=== PATIENT | female | born 1975 | race Caucasian/White ===

== ENCOUNTER → 2018-01-12 08:20 | Day surgery (SDC) | payer OTHER, SELFPAY ==
[2018-01-07 12:21] VITALS: BMI 35.3
[2018-01-12] VITALS (17 sets, daily range): BP systolic 103–147; BP diastolic 57–92; PULSE 78–97; RESP 14–20; TEMP 36.3–37; O2SAT 94–99; BMI 35.3
--- NOTE | 2018-01-12 | PATH_ITS ---
[facility] Accession Number: [id number] . 01 Material submitted: . ENDOMETRIOMA WALL . 02 Diagnosis: Endometrioma Wall, Biopsy: Histologic changes consistent with portions of endometrioma. Negative for atypia and malignancy. [facility]/01/15/2018 . 02 Electronically signed: . Yaima Medina MD, Pathologist NPI- [id number] . 01 Gross description: . Received in formalin, labeled 1-endometrial wall, is a piece simmons-white rubbery tissue (2.0 x 1.6 x 0.3 cm). The apparent resection margin is inked black. Serially sectioned and entirely submitted in cassette A1. ([id number] ) /FRR . 02 Pathologist provided ICD-10: N80.9 . 02 CPT . 811972 Performed at: 01 [facility] [address] [id number] MD Tone Shin MD Phone: [phone] Performed at: 02 [facility] [address] [place], [place] [id number] MD Hany Amaral MD Phone: [phone]
[2018-01-12] MEDS: LACTATED RINGERS 1,000 ML 42 ML IV ×2 (09:05→12:23)
--- NOTE | 2018-01-12 10:12 | PM.PREOP ---
Pre-operative Note Interval Note Pre-op Check: History & Physical exam performed today
--- NOTE | 2018-01-12 10:12 | PM.GYNHP.1 ---
History of Present Illness Narrative: Rocio Crawford is a 42 year old female 0 who presents for diagnostic laparoscopy with possible excision of a right/left adnexal cyst and lysis of adhesions Patient been has been having bilateral pelvic pain. She has a cyst on ultrasound. [facility] Medical History Anxiety (Acute) Depression (Acute) Dislocation of left shoulder joint (Acute) GERD (gastroesophageal reflux disease) (Acute) History of hysterectomy (Acute) History of uterine fibroid (Acute) Hydronephrosis of right kidney (Acute) Migraines (Acute) Pneumonia (Acute) Sinus infection (Acute) Surgical History Hx of cholecystectomy (Acute) Hx of laparoscopy (Acute) Status post hysterectomy Status post laparoscopy (12/01/15) Social History marital status: Single household members: family and none Smoking Status: Never smoker alcohol intake: current alcohol intake frequency: holidays/special occasions only Meds Home Medications Medication Instructions Recorded Confirmed Type ibuprofen [Advil Liqui-Gel] 400 mg PO PRN PRN #0 03/01/17 01/12/18 History hydrocodone-acetaminophen [Vicodin] 1 tab PO Q4-6H PRN 01/12/18 01/12/18 History Generic Name Dose Route Start Last Admin Trade Name Freq PRN Reason Stop Dose Admin Lactated Ringer's 1,000 mls @ 42 mls/hr 01/12/18 09:00 01/12/18 09:05 Lactated Ringers IV 42 mls/hr CONT GILDA Administration Allergies Allergy/AdvReac Type Severity Reaction Status Date / Time egg Allergy Severe ONLY WITH Unverified 01/12/18 08:40 VACCINES - ANYPHALAXIS levofloxacin [From LEVAQUIN] Allergy Severe ANGIOEDEMA Unverified 01/12/18 08:40 meperidine Allergy Intermediate ?PVCs/TACHY Unverified 01/12/18 08:40 CARDIA adhesive Allergy Mild BLISTERS Unverified 01/12/18 08:40 UNDER STERI-STRIPS ketorolac AdvReac Intermediate TACHYCARDIA, Unverified 01/12/18 08:40 SURGING FEELING Exam Vital Signs (past 8 hours): Vital Signs - 8 hr 01/12/18 08:50 Temperature 98.3 F Pulse Rate 92 H Respiratory Rate 18 Blood Pressure 147/90 H Pulse Oximetry 99 Pulse Oximetry 99 Oxygen Delivery Method Room Air Narrative Exam Narrative: Generally: A well-developed, well-nourished white female, no acute distress Lungs: Clear to auscultation bilaterally Cardiovascular: Regular rate and rhythm Abdomen: Well-healed Pfannenstiel, right upper quadrant, and laparoscopy scars. No hepatosplenomegaly. No masses palpable. Extremities: Negative Homans, no edema Assessment & Plan (1) Adnexal mass: Current visit: Yes Status: Acute (2) Pelvic pain: Current visit: Yes Status: Acute Plan: Plan: Assessment: 42-year-old 0 with an adnexal mass causing pelvic pain Suspect adhesions with peritoneal fluid collection Plan: Diagnostic laparoscopy with removal of mass and lysis of adhesions The risks, benefits, and alternatives to the procedure were explained to the patient. The risks including bleeding, infection, injury to the bowel, bladder, or ureters. She understands these risks and agrees to proceed. A full capital P AR-Q was held and consent form was signed. Patient does not desire any blood products
--- NOTE | 2018-01-12 10:17 | P.HPOB_ITS ---
History of Present Illness Narrative: Rocio Crawford is a 42 year old female 0 who presents for diagnostic laparoscopy with possible excision of a right/left adnexal cyst and lysis of adhesions Patient been has been having bilateral pelvic pain. She has a cyst on ultrasound. [facility] Medical History Anxiety (Acute) Depression (Acute) Dislocation of left shoulder joint (Acute) GERD (gastroesophageal reflux disease) (Acute) History of hysterectomy (Acute) History of uterine fibroid (Acute) Hydronephrosis of right kidney (Acute) Migraines (Acute) Pneumonia (Acute) Sinus infection (Acute) Surgical History Hx of cholecystectomy (Acute) Hx of laparoscopy (Acute) Status post hysterectomy Status post laparoscopy (12/01/15) Social History marital status: Single household members: family and none Smoking Status: Never smoker alcohol intake: current alcohol intake frequency: holidays/special occasions only Meds Home Medications Medication Instructions Recorded Confirmed Type ibuprofen [Advil Liqui-Gel] 400 mg PO PRN PRN #0 03/01/17 01/12/18 History hydrocodone-acetaminophen [Vicodin] 1 tab PO Q4-6H PRN 01/12/18 01/12/18 History Generic Name Dose Route Start Last Admin Trade Name Freq PRN Reason Stop Dose Admin Lactated Ringer's 1,000 mls @ 42 mls/hr 01/12/18 09:00 01/12/18 09:05 Lactated Ringers IV 42 mls/hr CONT GILDA Administration Allergies Allergy/AdvReac Type Severity Reaction Status Date / Time egg Allergy Severe ONLY WITH Unverified 01/12/18 08:40 VACCINES - ANYPHALAXIS levofloxacin [From LEVAQUIN] Allergy Severe ANGIOEDEMA Unverified 01/12/18 08:40 meperidine Allergy Intermediate ?PVCs/TACHY Unverified 01/12/18 08:40 CARDIA adhesive Allergy Mild BLISTERS Unverified 01/12/18 08:40 UNDER STERI-STRIPS ketorolac AdvReac Intermediate TACHYCARDIA, Unverified 01/12/18 08:40 SURGING FEELING Exam Vital Signs (past 8 hours): Vital Signs - 8 hr 3 01/12/18 08:50 Temperature 98.3 F Pulse Rate 92 H Respiratory Rate 18 Blood Pressure 147/90 H Pulse Oximetry 99 Pulse Oximetry 99 Oxygen Delivery Method Room Air Narrative Exam Narrative: Generally: A well-developed, well-nourished white female, no acute distress Lungs: Clear to auscultation bilaterally Cardiovascular: Regular rate and rhythm Abdomen: Well-healed Pfannenstiel, right upper quadrant, and laparoscopy scars. No hepatosplenomegaly. No masses palpable. Extremities: Negative Homans, no edema Assessment & Plan (1) Adnexal mass: Current visit: Yes Status: Acute (2) Pelvic pain: Current visit: Yes Status: Acute Plan: Plan: Assessment: 42-year-old 0 with an adnexal mass causing pelvic pain Suspect adhesions with peritoneal fluid collection Plan: Diagnostic laparoscopy with removal of mass and lysis of adhesions The risks, benefits, and alternatives to the procedure were explained to the patient. The risks including bleeding, infection, injury to the bowel, bladder , or ureters. She understands these risks and agrees to proceed. A full capital P AR-Q was held and consent form was signed. Patient does not desire any blood products
[2018-01-12] MEDS: BUPIVACAINE 0.5% W/ EPI (PF) 30 ML VIAL 12 ML INJ (11:14)
--- NOTE | 2018-01-12 11:24 | SUR.OPER ---
glasses in labeled container to pacu with patient
--- NOTE | 2018-01-12 12:23 | PM.GYNOP.1 ---
Operative Date/Time/Diagnoses - Date of procedure: 01/12/18 Time of procedure: 12:24 Pre-op diagnosis: Pelvic pain Post-op diagnosis: same Procedure: Procedures Operation Date: 01/12/18 09:45 Actual Procedures Side Surgeon p Laparoscopy, Diagnostic, DENTURE PACKER, lysis of adhesions,biopsy of endometrioma, aspiration of left ovarian cyst Irina Conley MD Indications: Pelvic pain Surgeon: Irina Conley Lead Sustainability Specialist: Alonso Botello Anesthesia Type: General Operative Notes Findings: Uterus surgically absent. Right ovary normal Liver normal Appendix normal Left adnexa with a large 8 cm x 5 cm endometrioma. Colon stuck to the left adnexa. 2 cm simple cyst on left ovary Endometriosis throughout the pelvis and abdomen, including bilateral pelvic sidewalls and adnexal. Closure Type: primary Specimen(s): other (Biopsy of endometrioma) Applied: catheter (In and out) Estimated blood loss (mL): 10 Blood products transfused: none Procedure in detail: After informed consent was obtained, the patient was taken to the operating room where she was placed in the dorsal supine position. After adequate general endotracheal anesthesia was achieved, she was placed in the dorsal lithotomy position, and prepped and draped in the usual sterile fashion. A moistened sponge stick was placed into the vagina. Attention was then turned to the abdomen where 5 cc of 0.5% Marcaine with epinephrine were injected in the umbilical fold. A 5 mm incision was made. The Veress needle was placed into the peritoneal cavity, and its placement confirmed by aspiration and drop test. The abdominal cavity was insufflated with 4.4 L of CO2. The Veress needle was removed and a 5 mm trocar was placed without difficulty. Initial inspection of the pelvis revealed the left colon stuck to the left adnexa. 2 other 5 mm incisions were made midway between the pubic symphysis and umbilicus, 4 cm lateral to the midline. Two 5 mm trocars were placed under direct visualization. The colon was grasped with an atraumatic grasper. Using the Endo Carmita the adhesions were taken down with care to avoid the colon and ureter. An intraoperative consultation was obtained with Dr. Botello, general surgeon, to help complete the adhesiolysis. His portion of the procedure will be dictated separately. A needle was placed into the left ovarian cyst and approximately 5 cc of clear fluid was aspirated. The pelvis was copiously irrigated with warm normal saline. No bleeding was noted. The instruments were removed from the abdomen. The CO2 was allowed to escape. The incisions were repaired with 4 0 undyed Vicryl in a subcuticular fashion. Steri-Strips, 2 x 2 was, and op site were placed. The moist sponge stick was removed from the vagina. Sponge, lap, and instrument counts were correct x2. The patient tolerated the procedure well, and was taken to PACU in stable condition. 1100 cc of crystalloid Complications: none Post-operative Condition: stable Disposition: PACU Plan for aftercare: Home after recovery
--- NOTE | 2018-01-12 12:54 | P.OP_ITS ---
Operative Date/Time/Diagnoses - Date of procedure: 01/12/18 Time of procedure: 12:00 Pre-op diagnosis: Adhesions of colon to the left pelvis Post-op diagnosis: same (With endometrioma) Procedure & Clinicians Procedure: Adhesiolysis and biopsy of endometrioma wall Same procedure as scheduled: No (I was asked to assist the junior linux systems administrator intraop due to findings) Indications: Pelvic pain Surgeon: Alonso Botello Reconciliation Specialist: Irina Conley Anesthesia Type: General Operative Notes Findings: Large cystic endometrioma cavity with dense adhesions to the sigmoid colon. Closure Type: not applicable Implants & Drains: None Estimated Blood Loss (mL): 5 Procedure in detail: The patient was in the course of an operation by Dr. Conley when I was asked to join her. The patient had very dense adhesions of the sigmoid colon to the left wall. She requested my a assistance to see if we could get these adhesions down. Using blunt and sharp dissection a carefully dissected along the left gutter. In so doing I entered a large cavity that contained old bloody fluid which was suctioned free. It had the appearance of an endometrioma cavity. Further dissection freed the left colon/sigmoid from the pelvic sidewall and the endometrioma cavity. Portion of the wall was removed and sent for pathologic evaluation. There was a cystic structure just above the upper margin of this endometrioma cavity which with further evaluation appeared to be a residual ovary with a cyst on it. Dr. Conley was left to do with this and I completed my portion of this procedure. The remainder is dictated by Dr. Conley. Complications: none Condition: stable Disposition: PACU Plan for aftercare: Follow-up with Dr. Conley
[2018-01-12] MEDS: HYDROCODONE/ACET 5/325 TABLET 1 TAB PO (14:00)
== END | disposition home or self-care (01) ==
PROVIDERS: Family Provider Internal Medicine; PCP Internal Medicine; Visit Provider Obstetrics & Gynecology
PROC: (CPT 49320; principal; 2018-01-12 09:45)
DX: R10.2 Pelvic and perineal pain (principal); N94.9 Unspecified condition associated with female genital organs and menstrual cycle; F41.9 Anxiety disorder, unspecified; K66.0 Peritoneal adhesions (postprocedural) (postinfection); N80.1 Endometriosis of ovary; N80.3 Endometriosis of pelvic peritoneum
CPT/HCPCS: 49322; J1100; J2250; J2405; J2704; J3010

== ENCOUNTER → 2018-11-27 10:42 | Outpatient (CLI) | payer OTHER, SELFPAY ==
--- NOTE | 2018-11-27 | DI.US.S_ITS ---
PROCEDURE: US PELVIC COMPLETE INDICATIONS: PAIN TECHNIQUE: Real-time scanning was performed of the pelvic organs, with image documentation. Additional endovaginal scanning was necessary due to incomplete visualization of the adnexal and endometrial structures by transabdominal scanning. COMPARISON: [facility], [place], PELVIC COMPLETE, 12/12/2017, 13:57. FINDINGS: Transabdominal scanning: Limited scanning through the kidneys shows no hydronephrosis. No pathologic free abdominal or pelvic fluid. Endovaginal scanning: Uterus: Uterus is surgically absent. Ovaries: Right ovary measures 2.7 x 1.5 x 1.6 cm in size. Left ovary measures 5.2 x 2.7 x 3.5 cm in size. Complex cyst measures 1.8 x 2 x 1.9 cm in size is seen in left ovary with peripheral vascularity. Simple cysts are noted in the left ovary measures up to 2.8 x 1.8 x 3 cm in size. IMPRESSION: 1. Multiple left ovarian cysts including a 1.8 x 2 x 1.9 cm complex appearing cyst. Ultrasound followup is recommended. 2. Normal appearing right ovary. Patient is status post hysterectomy. Dictated by: Sonido Louis M.D. on 11/27/2018 at 14:14 Approved by: Sonido Louis M.D. on 11/27/2018 at 14:16
== END ==
PROVIDERS: PCP Internal Medicine; Visit Provider Internal Medicine
DX: R10.2 Pelvic and perineal pain (principal); N83.292 Other ovarian cyst, left side; Z90.710 Acquired absence of both cervix and uterus
CPT/HCPCS: 76830; 76856

== ENCOUNTER → 2019-04-09 12:36 | Outpatient (CLI) | payer OTHER, SELFPAY ==
[2019-04-09 13:52] LABS: Cancer Antigen 125 6 U/mL (0-35)
== END ==
PROVIDERS: PCP Internal Medicine; Visit Provider Internal Medicine
DX: N83.209 Unspecified ovarian cyst, unspecified side (principal)
CPT/HCPCS: 36415; 86304

== ENCOUNTER → 2019-04-16 10:10 | Outpatient (CLI) | payer OTHER, SELFPAY ==
--- NOTE | 2019-04-16 | DI.US.S_ITS ---
PROCEDURE: US PELVIC COMPLETE INDICATIONS: OVARIAN CYST TECHNIQUE: Real-time scanning was performed of the pelvic organs, with image documentation. Additional endovaginal scanning was necessary due to incomplete visualization of the adnexal and endometrial structures by transabdominal scanning. COMPARISON: [facility], , PELVIC COMPLETE, 11/27/2018, 10:55. FINDINGS: Transabdominal scanning: Limited scanning through the kidneys shows no hydronephrosis. No pathologic free abdominal or pelvic fluid. Endovaginal scanning: Uterus: Surgically absent. Ovaries: Ovaries within normal limits in size measuring 2.0 x 3.7 x 2.8 cm on the right and 4.3 x 3.3 x 2.9 cm on the left. The left ovarian complex cyst seen on prior examination has decreased in size now measuring 0.9 x 0.7 x 1.0 cm. Are otherwise bilateral simple cysts measuring 2.4 x 1.8 x 2.3 cm on the right and 3.8 x 2.2 x 2.9 cm in length. Regressing physiologic cyst also involves the left ovary measuring roughly 2.0 cm. IMPRESSION: Nearly resolved complex left ovarian cyst and there are bilateral simple ovarian cyst as well as a regressing physiologic cyst involving the left ovary. Dictated by: Cain WELDON Interpreted: Trisha Gale MD on 04/16/2019 at 14:06 Approved by: Trisha Gale M.D. on 04/16/2019 at 15:19
== END ==
PROVIDERS: PCP Internal Medicine; Visit Provider Internal Medicine
DX: N83.292 Other ovarian cyst, left side (principal); N83.291 Other ovarian cyst, right side
CPT/HCPCS: 76830; 76856

== ENCOUNTER → 2019-11-27 09:09 | Outpatient (CLI) | payer OTHER, SELFPAY ==
[2019-11-27 12:00] LABS: Influenza A - CEPHEID Flu A NEGATIVE (NEGATIVE); Influenza B - CEPHEID Flu B NEGATIVE (NEGATIVE)
[2019-11-29 12:04] LABS: COVID19 Sendout Not Detected (Not Detected)
== END ==
PROVIDERS: PCP Internal Medicine; Visit Provider Physician Assistant
DX: R05 Cough (principal); Z20.828 Contact with and (suspected) exposure to other viral communicable diseases
CPT/HCPCS: 87502; 87635

== ENCOUNTER → 2020-03-01 14:11 | Outpatient (CLI) | payer OTHER, SELFPAY ==
--- NOTE | 2020-03-01 | DI.CT.S_ITS ---
PROCEDURE: CT SINUS SCREEN WO CON INDICATIONS: Acute maxillary sinusitis, unspecified TECHNIQUE: Noncontrast 3.0 mm axial images acquired from the frontal sinuses to the mid-sella, with coronal and sagittal reformats. For radiation dose reduction, the following was used: automated exposure control, adjustment of mA and/or kV according to patient size. COMPARISON: None. FINDINGS: Image quality: Excellent. Maxillary Sinuses: No bony remodeling or destruction. Sinuses are clear. Ethmoid Air Cells: No bony remodeling or destruction. Sinuses are clear. Sphenoid Sinuses: No bony remodeling or destruction. Sinuses are clear. Frontal Sinuses: No bony remodeling or destruction. Sinuses are clear. Ostiomeatal Complexes: Ostiomeatal complexes are patent. No Ken cells. Miscellaneous: Visualized intra-orbital contents are normal. No miraz bullosa or paradoxical turbinate curvature. Rightward deviation of the nasal septum with apex at the level of the inferior nasal turbinate. Mucosal contact point between the nasal septum and right nasal turbinate (coronal image 21). IMPRESSION: No findings of acute or chronic sinusitis. rightward deviation of the nasal septum with spurring and mucosal contact point. Dictated by: Apollo Mills M.D. on 03/01/2020 at 15:37 Approved by: Apollo Mills M.D. on 03/01/2020 at 15:39
== END ==
PROVIDERS: PCP Internal Medicine; Referring Provider Internal Medicine; Visit Provider Internal Medicine
DX: J01.00 Acute maxillary sinusitis, unspecified (principal); J34.2 Deviated nasal septum
CPT/HCPCS: 70486

== ENCOUNTER → 2020-03-15 18:27 | Outpatient (CLI) | payer OTHER, SELFPAY ==
--- NOTE | 2020-03-15 | DI.RAD.S_ITS ---
PROCEDURE: XR KNEE RT 3V INDICATIONS: acute pain of right knee/injury. TECHNIQUE: 3 views of the knee were acquired. COMPARISON: None. FINDINGS: Bones: No fractures or dislocations. No suspicious bony lesions. Soft tissues: No joint effusion. No suspicious soft tissue calcifications. IMPRESSION: no right knee fracture or dislocation. No joint effusion. Dictated by: Sonido Louis M.D. on 03/15/2020 at 18:58 Approved by: Sonido Louis M.D. on 03/15/2020 at 18:58
--- NOTE | 2020-03-15 | DI.RAD.S_ITS ---
PROCEDURE: XR LUMBAR SPINE 2-3V INDICATIONS: LOW BACK PAIN TECHNIQUE: 3 views of the lumbar spine were acquired. COMPARISON: None. FINDINGS: Bones: 5 dpm-ceo-hbkhbtk vertebrae are present. There is normal bony alignment. Mild degenerative endplate changes and bilateral facet arthrosis is seen throughout lumbar spine most prominent at L3-4 and L4-5 levels. No vertebral body compression fractures. No suspicious bony lesions. Soft tissues: Overlying bowel gas pattern is normal. No suspicious soft tissue calcifications. IMPRESSION: Mild degenerative disc disease throughout lumbar spine. No acute compression fracture or spondylolisthesis. Dictated by: Sonido Louis M.D. on 03/15/2020 at 18:59 Approved by: Sonido Louis M.D. on 03/15/2020 at 18:59
== END ==
PROVIDERS: PCP Internal Medicine; Referring Provider Internal Medicine; Visit Provider Internal Medicine
DX: M54.5 Low back pain (principal); M25.661 Stiffness of right knee, not elsewhere classified; M51.36 Other intervertebral disc degeneration, lumbar region
CPT/HCPCS: 72100; 73562

== ENCOUNTER → 2020-07-06 10:31 | Outpatient (CLI) | payer OTHER, SELFPAY ==
[2020-07-06 11:29] LABS: COVID19 -Nasal RAPID Negative (Negative)
== END ==
PROVIDERS: PCP Internal Medicine; Visit Provider Physician Assistant
DX: Z11.59 Encounter for screening for other viral diseases (principal); J02.9 Acute pharyngitis, unspecified
CPT/HCPCS: 87635

== ENCOUNTER → 2020-11-28 09:52 | Outpatient (CLI) | payer OTHER, SELFPAY ==
--- NOTE | 2020-11-28 09:56 | DI.RAD.S_ITS ---
PROCEDURE: XR CHEST 2V INDICATIONS: COUGH TECHNIQUE: 2 views of the chest were acquired. COMPARISON: [facility], , CHEST 2 VIEW, 04/08/2017, 16:46. FINDINGS: Surgical changes and devices: Cholecystectomy clips.. Lungs and pleura: Lungs are clear. No pleural effusions or pneumothorax. Mediastinum: Mediastinal contours are normal. Heart size is normal. Bones and chest wall: No suspicious bony abnormalities. Soft tissues appear unremarkable. IMPRESSION: No acute cardiopulmonary disease process. Dictated by: Lara Bowen MD, PhD on 11/28/2020 at 17:29 Approved by: Lara Bowen MD, PhD on 11/28/2020 at 17:30
== END ==
PROVIDERS: PCP Internal Medicine; Referring Provider Internal Medicine; Visit Provider Internal Medicine
DX: R05 Cough (principal)
CPT/HCPCS: 71046

== ENCOUNTER → 2021-02-07 18:58 | Outpatient (ROUT) | payer OTHER, SELFPAY ==
[2021-02-07 19:11] LABS: Hematocrit 41.7 % (36-46); Hemoglobin 14.1 g/dL (12.0-16.0); Lymphocytes Percent Auto 27.3 % (25-40); Mean Corpuscular HGB Conc 33.8 % (30-36); Mean Corpuscular Volume 91.8 fL (80-100); Neutrophils Percent Auto 61.3 % (50-75); Platelet Count 427 X10^3/uL (150-400); Red Blood Cell Count 4.55 X10^6/uL (4.0-5.2); Red Cell Distribution Width 12.8 % (11.6-14.8); White Blood Cell Count 8.3 X10^3/uL (4.5-11.0)
[2021-02-07 19:12] LABS: Add Manual Diff / Slide Review NO; Basophils Absolute Auto 100 /uL (0-100); Basophils Percent Auto 0.6 % (0-2); Eosinophils Absolute Auto 200 /uL (0-450); Eosinophils Percent Auto 2.5 % (2-4); Lymphocytes Absolute Auto 2300 /uL (1100-4500); Monocytes Absolute Auto 700 /uL (0-900); Monocytes Percent Auto 8.3 % (3-14); Neutrophils Absolute Auto 5100 /uL (1500-7000)
[2021-02-07 19:23] LABS: Alanine Aminotransferase 31 IU/L (<35); Albumin 3.9 g/dL (3.5-5.0); Albumin Globulin Ratio 1.4 (1.0-2.8); Alkaline Phosphatase 65 U/L (38-126); Aspartate Aminotransferase 25 IU/L (14-36); BUN Creatinine Ratio 20.3 (6-22); Bilirubin Total 0.4 mg/dL (0.2-1.3); Blood Urea Nitrogen 14 mg/dL (7-17); Calcium 9.6 mg/dL (8.4-10.2); Carbon Dioxide 23 mmol/L (22-32); Chloride 106 mmol/L (98-107); Cholesterol 164 mg/dL (140-199); Estimated Glomerular Filt Rate > 60.0 mL/min (>60); Globulin 2.8 g/dL (1.7-4.1); Glucose 132 mg/dL (70-100); HDL Cholesterol 43 mg/dL (40-60); HEMOLYSIS < 15 (0-50); LDL Cholesterol Calculated 69 mg/dL (<100); Potassium 3.8 mmol/L (3.4-5.1); Sodium 139 mmol/L (137-145); Total Protein 6.7 g/dL (6.3-8.2); Triglycerides 262 mg/dL (35-150)
[2021-02-07 19:52] LABS: TSH w/ Reflex to FT4 2.03 uIU/mL (0.47-4.68)
== END ==
PROVIDERS: PCP Internal Medicine; Visit Provider Internal Medicine
DX: I10 Essential (primary) hypertension (principal); E78.2 Mixed hyperlipidemia
CPT/HCPCS: 80053; 80061; 84443; 85025

== ENCOUNTER → 2021-06-22 09:44 | Outpatient (CLI) | payer OTHER, SELFPAY ==
[2021-06-24 11:32] LABS: COVID19 Sendout Not Detected (Not Detect)
== END ==
PROVIDERS: PCP Internal Medicine; Visit Provider Nurse Practitioner
DX: Z20.822 Contact with and (suspected) exposure to COVID-19 (principal)
CPT/HCPCS: 87635

== ENCOUNTER → 2022-04-04 19:03 | Outpatient (CLI) | payer OTHER, SELFPAY ==
--- NOTE | 2022-04-04 19:05 | DI.RAD.S_ITS ---
PROCEDURE: XR SHOULDER LT MIN 2V INDICATIONS: left shoulder pain TECHNIQUE: 3 views of the shoulder were acquired. COMPARISON: None. FINDINGS: Bones: No fractures or dislocations. No suspicious bony lesions. Visualized ribs appear intact. Soft tissues: No suspicious soft tissue calcifications. IMPRESSION: No acute radiographic abnormality. Glenohumeral alignment is intact. Consider MRI evaluation to assess for injuries related to shoulder dislocation. Dictated by: John Teague M.D. on 04/04/2022 at 19:24 Approved by: John Teague M.D. on 04/04/2022 at 19:25
== END ==
PROVIDERS: PCP Internal Medicine; Referring Provider Nurse Practitioner Family; Visit Provider Nurse Practitioner Family
DX: M25.512 Pain in left shoulder (principal)
CPT/HCPCS: 73030

== ENCOUNTER → 2022-05-10 14:33 | Outpatient (CLI) | payer OTHER, SELFPAY ==
[2022-05-10 15:44] LABS: Hematocrit 41.4 % (36-46); Hemoglobin 14.2 g/dL (12.0-16.0); Mean Corpuscular HGB Conc 34.3 % (30-36); Mean Corpuscular Volume 90.5 fL (80-100); Platelet Count 440 X10^3/uL (150-400); Red Blood Cell Count 4.57 X10^6/uL (4.0-5.2); Red Cell Distribution Width 13.1 % (11.6-14.8); White Blood Cell Count 7.1 X10^3/uL (4.5-11.0)
[2022-05-10 16:00] LABS: Alanine Aminotransferase 37 IU/L (<35); Albumin 4.3 g/dL (3.5-5.0); Albumin Globulin Ratio 1.5 (1.0-2.8); Alkaline Phosphatase 53 U/L (38-126); Aspartate Aminotransferase 29 IU/L (14-36); BUN Creatinine Ratio 19.7 (6-22); Bilirubin Total 0.6 mg/dL (0.2-1.3); Blood Urea Nitrogen 15 mg/dL (7-17); Carbon Dioxide 25 mmol/L (22-32); Chloride 105 mmol/L (98-107); Cholesterol 189 mg/dL (140-199); Estimated Glomerular Filt Rate > 60 mL/min (>60); Globulin 2.9 g/dL (1.7-4.1); Glucose 96 mg/dL (70-100); HDL Cholesterol 53 mg/dL (40-60); HEMOLYSIS < 15 (0-50); LDL Cholesterol Calculated 110 mg/dL (<100); Potassium 4.7 mmol/L (3.4-5.1); Sodium 138 mmol/L (137-145); Total Protein 7.2 g/dL (6.3-8.2); Triglycerides 131 mg/dL (35-150)
[2022-05-10 16:31] LABS: TSH w/ Reflex to FT4 1.63 uIU/mL (0.47-4.68)
== END ==
PROVIDERS: PCP Internal Medicine; Referring Provider Internal Medicine; Visit Provider Internal Medicine
DX: I10 Essential (primary) hypertension (principal)
CPT/HCPCS: 36415; 80053; 80061; 84443; 85027

== ENCOUNTER → 2022-06-19 15:12 | Outpatient (CLI) | payer OTHER, SELFPAY ==
--- NOTE | 2022-06-19 | DI.CT.S_ITS ---
PROCEDURE: CT SHOULDER LEFT WITHOUT CON INDICATIONS: EVAL FOR BONE LOSS ON GLENOID TECHNIQUE: Noncontrast 1-1.5 mm thick sections acquired from the acromioclavicular joint to the inferior scapula, with coronal and sagittal reformatting. COMPARISON: [facility], MR, MR SHOULDER LEFT WITHOUT CONTRAST, 06/07/2022, 11:10. FINDINGS: Image quality: Excellent. Bones: Mild osseous irregularity is seen at the anteroinferior glenoid rim, which may be related to degenerative changes or prior trauma resulting in approximately 9% loss of anteroinferior bone stock estimated using the best fit [place] technique. A possible small shallow Hill-Sachs lesion at the posterosuperior humeral head measures 18 x 14 x 2 mm. Mild degenerative changes are seen at the glenohumeral joint with joint space narrowing and marginal osteophyte formation. There are [id number] degenerative changes at the acromioclavicular joint. Focal subchondral sclerosis is seen at the distal clavicle adjacent to the acromioclavicular joint corresponding to edema on the prior MRI from 06/07/2022. Soft tissues: The rotator cuff musculature is normal in bulk. However, the tendons, ligaments, articular cartilages, and labrum are not well evaluated with standard CT. No significant glenohumeral effusion. No axillary lymphadenopathy. Included portions of the left lung are clear. IMPRESSION: 1. Findings suspicious for prior anterior instability including a possible small shallow chronic Hill-Sachs lesion at the posterosuperior humeral head measuring 18 x 14 x 2 mm. 2. Osseous irregularity of the anteroinferior glenoid results in approximately 9% loss of glenoid bone stock using the best fit [place] technique. 3. Mild glenohumeral osteoarthrosis. 4. Nonspecific sclerosis is seen in the distal clavicle in the region of edema on the MRI from 06/07/2022. Recommend correlation for recent osseous injury or point tenderness. Mild to moderate acromioclavicular joint osteoarthrosis. Approved by: Bk Cason M.D. on 06/20/2022 at 13:27
== END ==
PROVIDERS: PCP Internal Medicine; Referring Provider Orthopaedic Surgery; Visit Provider Orthopaedic Surgery
DX: S43.005A Unspecified dislocation of left shoulder joint, initial encounter (principal); M19.012 Primary osteoarthritis, left shoulder; X58.XXXA Exposure to other specified factors, initial encounter
CPT/HCPCS: 73200

== ENCOUNTER → 2022-10-02 13:45 | Outpatient (CLI) | payer OTHER, SELFPAY ==
--- NOTE | 2022-10-24 08:28 | P.HOLT.S_ITS ---
[facility] [place] Worker Report Referral & Results Date Patient Seen: 10/02/22 Requesting provider: Chadd Edgar Indication: Cardiac arrhythmia Duration of monitoring (days): 13 Diary information: There were 19 patient triggered events and 0 patient diary entries Patient triggered events were variably associated with (within 45 seconds) sinus rhythm, PACs, PVCs, and SVT Data: Minimum heart rate identified was 56 beats per minute at 03:33 on 10/13/2022 Maximum heart rate was sinus and was 147 beats per minute at 16:26 on 10/11/2022 Less than 1% of identified beats were ventricular or supraventricular ectopic in origin, which would classify them as rare. There was 1 run of SVT that was 5 beats in duration at a rate of 120 beats per minute which suggest possible atrial tachycardia rather than true SVT There were no pauses of 3 seconds or longer or episodes of atrial fibrillation identified on this study Impression: 13 day engagement specialist demonstrating rare PACs and PVCs and the single very brief run of atrial tachycardia/SVT as above Clinical correlation suggested
== END ==
PROVIDERS: PCP Internal Medicine; Referring Provider Internal Medicine; Visit Provider Internal Medicine
DX: I10 Essential (primary) hypertension (principal); I49.9 Cardiac arrhythmia, unspecified
CPT/HCPCS: 93246; 93248

== ENCOUNTER → 2023-02-03 14:11 | Outpatient (CLI) | payer OTHER, SELFPAY ==
[2023-02-03 15:16] LABS: Add Manual Diff / Slide Review NO; Basophils Absolute Auto 100 /uL (0-100); Basophils Percent Auto 0.7 % (0-2); Eosinophils Absolute Auto 200 /uL (0-450); Eosinophils Percent Auto 2.1 % (2-4); Hematocrit 40.4 % (36-46); Hemoglobin 13.9 g/dL (12.0-16.0); Lymphocytes Absolute Auto 2700 /uL (1100-4500); Lymphocytes Percent Auto 30.4 % (25-40); Mean Corpuscular HGB Conc 34.5 % (30-36); Mean Corpuscular Hemoglobin 31.3 PG (26-34); Mean Corpuscular Volume 90.8 fL (80-100); Monocytes Absolute Auto 600 /uL (0-900); Monocytes Percent Auto 6.6 % (3-14); Neutrophils Absolute Auto 5300 /uL (1500-7000); Neutrophils Percent Auto 60.2 % (50-75); Platelet Count 443 X10^3/uL (150-400); Red Blood Cell Count 4.45 X10^6/uL (4.0-5.2); Red Cell Distribution Width 13.7 % (11.6-14.8); White Blood Cell Count 8.8 X10^3/uL (4.5-11.0)
[2023-02-03 15:34] LABS: Alanine Aminotransferase 35 IU/L (<35); Albumin 4.2 g/dL (3.5-5.0); Albumin Globulin Ratio 1.4 (1.0-2.8); Alkaline Phosphatase 53 U/L (38-126); Aspartate Aminotransferase 27 IU/L (14-36); BUN Creatinine Ratio 20.7 (6-22); Bilirubin Total 0.8 mg/dL (0.2-1.3); Blood Urea Nitrogen 18 mg/dL (7-17); Calcium 8.8 mg/dL (8.4-10.2); Carbon Dioxide 27 mmol/L (22-32); Chloride 103 mmol/L (98-107); Cholesterol 204 mg/dL (140-199); Estimated Glomerular Filt Rate > 60 mL/min (>60); Glucose 94 mg/dL (70-100); HDL Cholesterol 46 mg/dL (40-60); HEMOLYSIS < 15 (0-50); LDL Cholesterol Calculated 113 mg/dL (<100); Magnesium 1.8 mg/dL (1.6-2.3); Potassium 3.9 mmol/L (3.4-5.1); Sodium 138 mmol/L (137-145); Total Protein 7.2 g/dL (6.3-8.2); Triglycerides 224 mg/dL (35-150)
[2023-02-03 16:02] LABS: Thyroid Stimulating Hormone 1.76 uIU/mL (0.47-4.68)
== END ==
PROVIDERS: PCP Internal Medicine; Referring Provider Internal Medicine Cardiovascular Disease; Visit Provider Internal Medicine Cardiovascular Disease
DX: I10 Essential (primary) hypertension (principal); R00.2 Palpitations
CPT/HCPCS: 36415; 80053; 80061; 83735; 84443; 85025

== ENCOUNTER → 2023-02-25 14:28 | Outpatient (CLI) | payer OTHER, SELFPAY ==
--- NOTE | 2023-02-25 14:30 | DI.RAD.S_ITS ---
PROCEDURE: XR ELBOW RT MIN 3V INDICATIONS: Right elbow pain x 2 weeks TECHNIQUE: 3 views of the elbow were acquired. COMPARISON: None. FINDINGS: Bones: No fractures or dislocations. No suspicious bony lesions. Soft tissues: No elbow joint effusion. No suspicious soft tissue calcifications. IMPRESSION: No fracture. No osseous lesion. If symptoms and/or clinical suspicion for pathology persists, further assessment with repeat radiographs (7-10 days) or advanced imaging (e.g. CT, MRI or bone scan) should be considered. Dictated by: Lara Bowen MD, PhD on 02/25/2023 at 14:48 Approved by: Lara Bowen MD, PhD on 02/25/2023 at 14:48
== END ==
PROVIDERS: PCP Internal Medicine; Referring Provider Physician Assistant; Visit Provider Physician Assistant
DX: M25.521 Pain in right elbow (principal)
CPT/HCPCS: 73080

== ENCOUNTER → 2023-03-13 09:20 | Outpatient (CLI) | payer OTHER, SELFPAY ==
--- NOTE | 2023-03-13 09:21 | DI.ECHO.S_ITS ---
[facility]---------+ [facility] +---------+ : : [address] : : : : [id number] : : : : Phone: [phone]+ Echocardiogram Report + + :Name: COLTON VASQUEZ Study Date: 03/13/2023 Height: 66 in : :[facility] ReadingLocation: Weight: 220 lb : : Gender: Female BSA: 2.1 m2 : :: 1975 Age: 48 yrs BP: 168/102 mmHg: :Reason For Study: Hypertension : :Ordering Physician: XIOMARA, : :MELBA Performed By: Alexandra Hamilton : :Referring: MELBA SOLANO : + + Interpretation Summary 1) Normal left ventricular thickness, size, wall motion, and systolic function (EF 60-65%). 2) Normal right ventricular size and function. 3) No significant valvular abnormalities. 4) No prior Echo available for comparison. Procedure: A two-dimensional transthoracic echocardiogram with color flow and Doppler was performed. The study quality was technically adequate. There is no prior echocardiogram noted for this patient. The patient was in normal sinus rhythm during the exam. Left Ventricle: The left ventricle is normal in size and wall thickness. The ejection fraction is estimated to be 60-65%. Left ventricular systolic function appears normal without focal wall motion abnormalities. Diastolic parameters suggest probable normal left ventricular diastolic function and normal filling pressures. Right Ventricle: The right ventricle is normal size. The right ventricular systolic function is normal. Atria: The left atrial size is normal. Right atrial size is normal. There is no Doppler evidence for an interatrial shunt. Mitral Valve: The mitral valve leaflets appear borderline thickened, but open well. There is no mitral valve stenosis. There is trace mitral regurgitation. Aortic Valve: The aortic valve is trileaflet. The aortic valve opens well. There is no aortic valve stenosis. No aortic regurgitation is present. Tricuspid Valve: The tricuspid valve is normal. There is no tricuspid stenosis. There is trace tricuspid regurgitation. The right ventricular systolic pressure is estimated to be at least 23 mmHg based on an estimated right atrial pressure of 3 mm Hg. Pulmonic Valve: The pulmonic valve leaflets are thin and pliable; valve motion is normal. There is no pulmonic valvular stenosis. There is trace pulmonic regurgitation. Great Vessels: The aortic root is normal size. The ascending aorta is normal in size. The pulmonary artery is normal size. The IVC is of normal diameter and collapses greater than 50% with a sniff. This suggests a low right atrial pressure of 3 mm Hg. Pericardium/ Pleura There is no pericardial effusion. There is no pleural effusion. MMode/2D Measurements & Calculations LVIDd: 5.6 cm LVOT diam: 2.0 cm LVIDs: 3.4 cm Ao root diam: 2.9 cm FS: 39.3 % asc Aorta Diam: 3.5 cm EPSS: 0.70 cm IVSd: 1.1 cm LVPWd: 0.90 cm LV green. diameter/BSA (cm/m^2): 2.7 LV sys. diameter/BSA (cm/m^2): 1.6 LA A2 area: 13.1 cm2 RA long axis: 4.8 cm LA A4 area: 12.7 cm2 RA area: 13.9 cm2 LA length (vol): 4.7 cm RA vol: 34.5 ml LA vol: 30.2 ml RA : 16.6 ml/m2 LA vol index: 14.5 ml/m2 RVD1 (basal): 4.0 cm LVLs ap4: 6.6 cm LVLd ap2: 6.8 cm TAPSE_phl: 2.7 cm LVLs ap2: 5.8 cm Doppler Measurements & Calculations Ao V2 max: 173.0 cm/sec LVOT Max Deangelo: 102.0 cm/sec Ao V2 mean: 118.0 cm/sec LV V1 max P.2 mmHg Ao max P.0 mmHg LV V1 VTI: 22.9 cm Ao mean P.0 mmHg TALITA(I,D): 1.9 cm2 Ao V2 VTI: 37.3 cm TALITA(V,D): 1.9 cm2 sev ratio: 0.61 TALITA indexed to BSA (cm^2/m^2): 0.93 MV E max deangelo: 98.5 cm/sec TR max deangelo: 228.0 cm/sec MV A max deangelo: 86.3 cm/sec TR max P.8 mmHg MV E/A: 1.1 PA V2 max: 100.0 cm/sec Med Peak E' Deangelo: 7.3 cm/sec PA V2 mean: 73.1 cm/sec E/E' med: 13.6 PA mean P.0 mmHg Lat Peak E' Deangelo: 10.0 cm/sec PA pr(Accel): 20.9 mmHg E/E' lat: 9.9 E/e' average: 11.7 MV dec time: 0.20 sec SV(LVOT): 71.9 ml AV VR_phl: 0.59 TALITA(VTI)/BSA_phl: 0.93 MV P1/2t-pr_phl: 58.0 msec Reading Physician:03:32 PM
== END ==
PROVIDERS: PCP Internal Medicine; Referring Provider Internal Medicine Cardiovascular Disease; Visit Provider Internal Medicine Cardiovascular Disease
DX: R07.89 Other chest pain (principal); R00.2 Palpitations; I10 Essential (primary) hypertension; I49.3 Ventricular premature depolarization; I51.7 Cardiomegaly
CPT/HCPCS: 93306

== ENCOUNTER → 2023-03-18 14:30 | Outpatient (CLI) | payer OTHER, SELFPAY ==
--- NOTE | 2023-03-18 14:31 | DI.NM.S_ITS ---
PROCEDURE: NM EXERCISE TREADMILL NON NUC COMPARISON: None. INDICATIONS: Other chest pain FINDINGS: The patient exercised for 7 minutes and 6 seconds reaching 94% of maximum predicted heart rate. 10.1 METS, JAZMÍN +11%. Hypertensive response to exercise (resting BP 138/78mmHg, max BP 228/98mmHg). Rare PVCs present. No chest pain and no ST changes during exercise or recovery. IMPRESSION: Low risk, normal treadmill ECG only stress test with mildly reduced exercise tolerance (JAZMÍN +11%). Hypertensive response to exercise (resting BP 138/78mmHg, max BP 228/98mmHg). Dictated by: Pinky Walton MD on 03/19/2023 at 13:35 Approved by: Pinky Walton MD on 03/19/2023 at 13:38
== END ==
PROVIDERS: PCP Internal Medicine; Referring Provider Internal Medicine Cardiovascular Disease; Visit Provider Internal Medicine Cardiovascular Disease
DX: R07.89 Other chest pain (principal); R00.2 Palpitations
CPT/HCPCS: 93017

== ENCOUNTER → 2024-01-12 17:15 | Outpatient (CLI) | payer OTHER, SELFPAY ==
--- NOTE | 2024-01-12 17:17 | DI.RAD.S_ITS ---
PROCEDURE: XR CHEST 2V INDICATIONS: cough TECHNIQUE: 2 views of the chest were acquired. COMPARISON: [facility], , XR CHEST 2V, 11/28/2020, 10:02. [facility], , CHEST 2 VIEW, 04/08/2017, 16:46. FINDINGS: Surgical changes and devices: None. Lungs and pleura: Lungs are clear. No pleural effusions or pneumothorax. Mediastinum: Mediastinal contours are normal. Heart size is normal. Bones and chest wall: No suspicious bony abnormalities. Soft tissues appear unremarkable. IMPRESSION: No acute cardiopulmonary abnormality is seen. Dictated by: Matt Wakefield M.D. on 01/12/2024 at 20:23 Approved by: Matt Wakefield M.D. on 01/12/2024 at 20:23
== END ==
PROVIDERS: PCP Internal Medicine; Referring Provider Nurse Practitioner Family; Visit Provider Nurse Practitioner Family
DX: R05.9 Cough, unspecified (principal)
CPT/HCPCS: 71046

== ENCOUNTER 2024-06-23 14:03 | Emergency (ER) | payer OTHER, SELFPAY ==
[2024-06-23 14:14] VITALS: BP 184/95; PULSE 89; RESP 17; TEMP 36.6; O2SAT 98; BMI 36.8
--- NOTE | 2024-06-23 14:47 | ED_ITS ---
HPI - Extremity Injury (Upper) <Ellen Craig PA-C - Last Filed: 06/23/24 14:52> General Chief Complaint: Extremity Injury, Upper Stated Complaint: r arm/elbow injury Time Seen by Provider: 06/23/24 14:43 Source: patient Mode of arrival: Ambulatory History of Present Illness HPI narrative: Patient is a very pleasant 49-year-old female that presents to the emergency room department today because HR Department requested that she be seen. 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 The patient was 370 lb, T was attempting to help him move, she was pulling them, she started to have discomfort and pain in a popping sensation in the right elbow. She continued to work after the patient was moved onto the bed. Currently she has presented to work, but then was encouraged to be seen in the emergency department to fill out L and I paperwork. She is having some discomfort and pain in the medial aspect of the right elbow, it has not impeding her ability to do her job today. She is some minor discomfort and pain upon supination and pronation. She has been doing [id number] supportive therapy. She is right-hand dominant. She has no other further complaints. Related Data Home Medications Medication Instructions Recorded Confirmed acetaminophen 650 mg 650 mg PO Q12H 05/10/22 08/04/23 tablet,extended release (Tylenol Arthritis Pain) cholecalciferol (vitamin D3) 125 125 mcg PO DAILY 05/10/22 08/04/23 mcg (5,000 unit) capsule elderberry fruit 575 mg PO DAILY PRN 05/10/22 08/04/23 ibuprofen 200 mg tablet 200 mg PO Q6H PRN 05/10/22 08/04/23 multivitamin 1 tab PO DAILY 05/10/22 08/04/23 sennosides 8.6 mg tablet 8.6 mg PO DAILY PRN constipation 05/10/22 08/04/23 vitamin B complex 1 tab PO DAILY 05/10/22 08/04/23 Previous Rx's Medication Instructions Recorded levalbuterol tartrate 45 1 puff inhalation Q4-6H PRN 02/25/23 mcg/actuation aerosol inhaler shortness of breath #15 grams azithromycin 250 mg tablet See Rx Instructions PO .COMPLEX #6 05/13/24 tabs fluticasone propionate 50 1 spray intranasal Q12H #16 grams 01/12/24 mcg/actuation nasal spray,suspension (Flonase Allergy Relief) prednisone 20 mg tablet 40 mg (2 x 20 mg) PO DAILY #6 tabs 01/12/24 Allergies Allergy/AdvReac Type Severity Reaction Status Date / Time egg Allergy Severe ONLY WITH Verified 06/23/24 14:17 VACCINES - ANYPHALAXIS levofloxacin [From LEVAQUIN] Allergy Severe ANGIOEDEMA Verified 06/23/24 14:17 meperidine Allergy Intermediate ?PVCs/TACHY Verified 06/23/24 14:17 CARDIA adhesive Allergy Mild BLISTERS Verified 06/23/24 14:17 UNDER STERI-STRIPS albuterol AdvReac Severe Vomiting Verified 06/23/24 14:17 [From Proventil HFA] Tetanus Vaccines and Toxoid AdvReac Severe Hives Verified 06/23/24 14:17 ketorolac AdvReac Intermediate TACHYCARDIA, Verified 06/23/24 14:17 SURGING FEELING MMR vaccine AdvReac Severe Anaphylaxis Uncoded 06/23/24 14:17 Covid vaccine AdvReac Intermediate Hives Uncoded 06/23/24 14:17 flu vaccine AdvReac Intermediate Hives Uncoded 06/23/24 14:17 Review of Systems <Ellen Craig PA-C - Last Filed: 06/23/24 14:52> Review of Systems Narrative: Negative except as above Musculoskeletal Comments: Medial right elbow pain Patient History <Ellen Craig PA-C - Last Filed: 06/23/24 14:52> Medical History LVH (left ventricular hypertrophy) PVCs (premature ventricular contractions) Obesity (BMI 30-39.9) Strain of right rotator cuff capsule Essential hypertension Dislocation of left shoulder joint GERD (gastroesophageal reflux disease) Migraines Pneumonia (2013) Hydronephrosis of right kidney Depression Anxiety Sinus infection History of uterine fibroid Surgical History Status post surgery (01/12/18) Hx of cholecystectomy Status post hysterectomy (2013) Status post laparoscopy (12/01/15) Social History household members: family and none Smoking Status: Never smoker alcohol intake: current Smoking Status: Never smoker alcohol intake frequency: holidays/special occasions only Substance Use Type: does not use Exam <Ellen Craig PA-C - Last Filed: 06/23/24 14:52> Initial Vital Signs Initial Vital Signs: Vital Signs Temperature 98 F 06/23/24 14:14 Pulse Rate 89 06/23/24 14:14 Respiratory Rate 17 06/23/24 14:14 Blood Pressure 184/95 H 06/23/24 14:14 Pulse Oximetry 98 06/23/24 14:14 Oxygen Delivery Method Room Air 06/23/24 14:14 Reviewed Const General: cooperative, healthy appearing, comfortable, well developed, well groomed, No acute distress, No in distress and No anxious Orientation: Orientation Eyes General: Yes appearance normal, both eyes and all related structures Pupils: PERRL EOM: EOM intact bilaterally Skin Other: Warm pink and dry no ecchymosis, no bruising, no soft tissue swelling, Neuro Other: Cranial nerves are grossly intact, cognition, speech, gait, motor are intact. Extrem Other: Range of motion, strength, pulses, cap refill preserved in the upper and lower extremities. Patient has some discomfort and pain with supination pronation of the right upper extremity, no soft tissue swelling, no deformity, no ecchymosis is noted, cap refill is preserved, pulses are present. No discomfort or pain proximal or distal to the elbow. Psych Other: Parents, mental status, speech, movement, mood, affect, attitude, thought process, thought content, judgment is intact. <Meseret Samuel MD - Last Filed: 06/24/24 07:47> Initial Vital Signs Initial Vital Signs: Vital Signs Temperature 98 F 06/23/24 14:14 Pulse Rate 89 06/23/24 14:14 Respiratory Rate 17 06/23/24 14:14 Blood Pressure 184/95 H 06/23/24 14:14 Pulse Oximetry 98 06/23/24 14:14 Oxygen Delivery Method Room Air 06/23/24 14:14 Scores <Ellen Craig PA-C - Last Filed: 06/23/24 14:52> GCS Citation: 15 Course <NIKI Castro Last Filed: 06/23/24 14:52> Vital Signs Vital signs: Vital Signs - 8 hr 06/23/24 14:14 Temperature 98 F Pulse Rate 89 Respiratory Rate 17 Blood Pressure 184/95 H Pulse Oximetry 98 Oxygen Delivery Method Room Air Reviewed <Meseret Samuel MD - Last Filed: 06/24/24 07:47> Vital Signs Vital signs: Vital Signs - 8 hr 06/23/24 14:14 Temperature 98 F Pulse Rate 89 Respiratory Rate 17 Blood Pressure 184/95 H Pulse Oximetry 98 Oxygen Delivery Method Room Air MDM - Extremity Injury (Upper) <Ellen Craig PA-C - Last Filed: 06/23/24 14:52> MDM Narrative Medical decision making narrative: Pleasant 49-year-old female presents to the emergency department on the behest of HR department. 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 Presented to work today, told to present to the emergency department due L and I paperwork. Currently doing [id number] supportive therapy with relief of her discomfort and pain. Currently at this time the injury is not impacting her ability to do her job. Currently at this time I do not feel an x-ray is warranted, she is full range of motion, there is no obvious deformity, she is able to move the extremity, She is some minor discomfort upon pronation supination on exam. Supportive therapy, ED precautions, [id number] treatment and supportive therapy. Differential diagnosis; elbow sprain Discharge Plan Departure Patient Disposition: Home Clinical Impression: Sprain of right elbow Qualifiers: Encounter type: initial encounter Qualified Code(s): S53.401A - Unspecified sprain of right elbow, initial encounter Instructions: DI for Elbow Sprain Activity Restrictions/Additional Instructions: Rest, ice, Froilan wrap, [id number] ibuprofen and Tylenol as needed for pain and discomfort. L and I paperwork filled out. Follow up with her primary care doctor as needed. Return to the emergency department as needed. Prescriptions: No Action fluticasone propionate [Flonase Allergy Relief] 50 mcg/actuation spray,suspension 1 spray intranasal Q12H Qty: 16 0RF Rx Instructions: administer into each nostril prednisone 20 mg tablet 40 mg PO DAILY Qty: 6 0RF azithromycin 250 mg tablet See Rx Instructions PO .COMPLEX Qty: 6 0RF Rx Instructions: For 250 mg dose pack: take 500 mg today (day 1), then 250 mg for 4 days (days 2-5) PO levalbuterol tartrate 45 mcg/actuation HFA aerosol inhaler 1 puff inhalation Q4-6H PRN (Reason: shortness of breath) Qty: 15 11RF cholecalciferol (vitamin D3) 125 mcg (5,000 unit) capsule 125 mcg PO DAILY acetaminophen [Tylenol Arthritis Pain] 650 mg tablet extended release 650 mg PO Q12H multivitamin Tablet 1 tab PO DAILY vitamin B complex Tablet 1 tab PO DAILY elderberry fruit 575 mg PO DAILY PRN ibuprofen 200 mg tablet 200 mg PO Q6H PRN sennosides 8.6 mg tablet 8.6 mg PO DAILY PRN (Reason: constipation) Referrals: Chadd Edgar MD [Primary Care Provider] - Stand Alone Forms: Patient Portal/API, Work Release Note ED Sign-out <Meseret Samuel MD - Last Filed: 06/24/24 07:47> Cosign ED Attending Kevinature Attestation: I was immediately available in the department for consultation throughout this patient's visit. Meseret Samuel MD
--- NOTE | 2024-06-23 14:52 | PC.NURSE ---
Stated when moving a pt yesterday at work she hurt/pulled something in her right arm/elbow. Pt able to move all extremities. Pt states she was told to come to ER to be evaluated/cleared for work. Respirations regular and unlabored. No acute distress noted.
== END 2024-06-23 14:54 | disposition home or self-care (01) ==
PROVIDERS: Emergency Provider Physician Assistant; PCP Internal Medicine
DX: S53.401A Unspecified sprain of right elbow, initial encounter (principal); X50.9XXA Other and unspecified overexertion or strenuous movements or postures, initial encounter; Y93.F2 Activity, caregiving, lifting
CPT/HCPCS: 99281